=== PATIENT | male | born 1950 | race Caucasian/White ===

== ENCOUNTER 2017-03-16 11:12 | Outpatient (CLI) | payer MEDICARE, BC ==
[~2017-03-16] VITALS: Ht 170.2 cm; Wt 79.4 kg
[~2017-03-16 11:12] MED LIST: DULO1CAP3 PO; FISH100049 PO; MELO15TA4 PO; NAPR500T81 PO; OMEGA PO; OMEP20TA7 PO; OMEP40CA2 PO; TOPI50TA9 PO; TOPIRAMATE PO; TRAM37.53 PO; TRAM50TA2 PO; ULTRTA PO; VIT D 2000 PO; VITA10002 PO; VITA1CAP25 PO
[2017-03-16] MEDS ORDERED: VITA-182 PO (11:38)
[2017-03-16] MEDS ORDERED: NS 1,000 ML IV ONE (11:45)
[2017-03-16] MEDS ORDERED: PROPOFOL 200 MG/20 ML VIAL As Ordered ONE ×2 (12:38→13:02)
[2017-03-16] MEDS ORDERED: LIDOCAINE 2% INJ 100 MG/5 ML SDV (FOR ANES.) As Ordered ONE (12:38)
--- NOTE | 2017-03-16 12:53 | ROOR ---
Patient Name: Jose Daniel Petty Procedure Date: 03/16/2017 12:34 PM Date of : 1950 Age: 66 Room: [facility] Gender: Male Note Status: Finalized Procedure: Upper Endoscopy + Biopsies Indications: Heartburn, Heme positive stool Providers: Noam Louise MD Referring MD: Mirlande Valverde NP Requesting Provider: Medicines: Monitored Anesthesia Care Complications: No immediate complications. Procedure: Pre-Anesthesia Assessment: - The heart rate, respiratory rate, oxygen saturations, blood pressure, adequacy of pulmonary ventilation, and response to care were monitored throughout the procedure. The Endoscope was introduced through the mouth, and advanced to the second part of duodenum. The upper GI endoscopy was accomplished without difficulty. The patient tolerated the procedure well. Findings: The Z-line was irregular and was found 35 cm from the incisors. Multiple biopsies were obtained with cold forceps for evaluation to rule out Bunch's Esophagus randomly at the gastroesophageal junction. A small hiatal hernia was present. No other significant abnormalities were identified in a careful examination of the stomach. The exam of the duodenum was otherwise normal. Impression: - Z-line irregular, 35 cm from the incisors. - Small hiatal hernia. - Multiple biopsies were obtained at the gastroesophageal junction. - The examination was otherwise normal. Recommendation: - Patient has a contact number available for emergencies. The signs and symptoms of potential delayed complications were discussed with the patient. Return to normal activities tomorrow. Written discharge instructions were provided to the patient. - High fiber diet. - Discharge patient to home. - Follow an antireflux regimen. - Continue present medications. - Await pathology results. - Telephone GI clinic for pathology results in 1 week. - The findings and recommendations were discussed with the patient's family. Noam Louise MD Noam Louise MD 03/16/2017 12:53:01 PM This report has been signed electronically. Number of Addenda: 0 Note Initiated On: 03/16/2017 12:34 PM Estimated Blood Loss: Estimated blood loss: none.
--- NOTE | 2017-03-16 13:13 | ROOR ---
Patient Name: Jose Daniel Petty Procedure Date: 03/16/2017 12:35 PM Date of : 1950 Age: 66 Room: [facility] Gender: Male Note Status: Finalized Procedure: Total Colonoscopy to Cecum + Biopsy Polypectomy Indications: Last colonoscopy: 2010, Heme positive stool Providers: Noam Louise MD Referring MD: Mirlande Valverde NP Requesting Provider: Medicines: Monitored Anesthesia Care Complications: No immediate complications. Procedure: Pre-Anesthesia Assessment: - The heart rate, respiratory rate, oxygen saturations, blood pressure, adequacy of pulmonary ventilation, and response to care were monitored throughout the procedure. The Colonoscope was introduced through the anus and advanced to the cecum, identified by appendiceal orifice and ileocecal valve. The colonoscopy was performed without difficulty. The patient tolerated the procedure well. The quality of the bowel preparation was excellent. Findings: The perianal and digital rectal examinations were normal. Non-bleeding internal hemorrhoids were found during retroflexion. The hemorrhoids were small and Grade I (internal hemorrhoids that do not prolapse). Scattered small-mouthed diverticula were found in the recto-sigmoid colon, sigmoid colon and descending colon. A small polyp was found in the cecum. The polyp was sessile. The polyp was removed with a cold biopsy forceps. Resection and retrieval were complete. The exam was otherwise without abnormality on direct and retroflexion views. Impression: - Non-bleeding internal hemorrhoids. - Diverticulosis in the recto-sigmoid colon, in the sigmoid colon and in the descending colon. - One small polyp in the cecum, removed with a cold biopsy forceps. Resected and retrieved. - The examination was otherwise normal on direct and retroflexion views. - The exam was otherwise normal to the cecum. Recommendation: - Patient has a contact number available for emergencies. The signs and symptoms of potential delayed complications were discussed with the patient. Return to normal activities tomorrow. Written discharge instructions were provided to the patient. - High fiber diet. - Discharge patient to home. - Continue present medications. - Await pathology results. - Telephone GI clinic for pathology results in 1 week. - Repeat colonoscopy in 10 years for surveillance based on pathology results. - Return to referring physician. - The findings and recommendations were discussed with the patient's family. Noam Louise MD Noam Louise MD 03/16/2017 1:12:52 PM This report has been signed electronically. Number of Addenda: 0 Note Initiated On: 03/16/2017 12:35 PM Estimated Blood Loss: Estimated blood loss: none.
[2017-03-16 13:58] VITALS: BP 108/70
== END 2017-03-16 14:03 | disposition home or self-care (01) ==
LOC: M OPP 11:12
PROVIDERS: ATTEND Internal Medicine Gastroenterology
DX: K64.0 First degree hemorrhoids (principal); K57.30 Diverticulosis of large intestine without perforation or abscess without bleeding; D12.0 Benign neoplasm of cecum; R12 Heartburn; K22.8 Other specified diseases of esophagus; K44.9 Diaphragmatic hernia without obstruction or gangrene; K20.9 Esophagitis, unspecified; M19.90 Unspecified osteoarthritis, unspecified site; F41.9 Anxiety disorder, unspecified; F33.9 Major depressive disorder, recurrent, unspecified; G25.81 Restless legs syndrome; G62.9 Polyneuropathy, unspecified; R56.9 Unspecified convulsions; K21.9 Gastro-esophageal reflux disease without esophagitis; F17.210 Nicotine dependence, cigarettes, uncomplicated; Z79.899 Other long term (current) drug therapy

== ENCOUNTER → 2018-02-23 | Outpatient (CLI) | payer MEDICARE, BC ==
[~2018-02-23] MED LIST changes: -DULO1CAP3 PO; -FISH100049 PO; +LIDOCAINE 1% MDV 20ML VIAL As Ordered; -MELO15TA4 PO; -NAPR500T81 PO; -OMEGA PO; -OMEP20TA7 PO; -OMEP40CA2 PO; -TOPI50TA9 PO; -TOPIRAMATE PO; -TRAM37.53 PO; -TRAM50TA2 PO; -ULTRTA PO; -VIT D 2000 PO; -VITA10002 PO; -VITA1CAP25 PO
== END ==
LOC: M RADPRO 07:53
DX: D36.0 Benign neoplasm of lymph nodes (principal); F17.210 Nicotine dependence, cigarettes, uncomplicated; M12.9 Arthropathy, unspecified; Z79.891 Long term (current) use of opiate analgesic; Z79.899 Other long term (current) drug therapy
CPT/HCPCS: 38505

== ENCOUNTER → 2018-03-20 | Outpatient (CLI) | payer MEDICARE, BC | LOC: M RADPRO 09:51 | DX: R59.0 Localized enlarged lymph nodes (principal); E78.00 Pure hypercholesterolemia, unspecified; K21.9 Gastro-esophageal reflux disease without esophagitis; M54.9 Dorsalgia, unspecified; M17.0 Bilateral primary osteoarthritis of knee; F17.210 Nicotine dependence, cigarettes, uncomplicated; D51.9 Vitamin B12 deficiency anemia, unspecified; Z79.891 Long term (current) use of opiate analgesic; Z79.899 Other long term (current) drug therapy | CPT/HCPCS: 38505 ==

== ENCOUNTER → 2021-02-24 | Outpatient (REF) | payer MEDICARE, BC ==
[~2021-02-24] MED LIST changes: +CYAN100049 PO; +DULO1CAP6 PO; +FISH100049 PO; -LIDOCAINE 1% MDV 20ML VIAL As Ordered; +MELO15TA28 PO; +NAPR500T81 PO; +OMEGA PO; +OMEP20TA7 PO; +OMEP40CA4 PO; +TOPI50TA9 PO; +TOPIRAMATE PO; +TRAM37.53 PO; +TRAM50TA2 PO; +ULTRTA PO; +VIT D 2000 PO; +VITA-182 PO; +VITA1CAP25 PO
== END ==
LOC: M LAB REF 16:49
PROVIDERS: ATTEND Nurse Practitioner Adult Health
DX: R03.0 Elevated blood-pressure reading, without diagnosis of hypertension (principal)

== ENCOUNTER → 2022-11-22 | Outpatient (CLI) | payer MEDICARE, BC ==
[~2022-11-22] MED LIST changes: +ISOVUE-370 76% 100ML VIAL As Ordered ONE; +TOPI-254 PO; -TOPI50TA9 PO
== END ==
LOC: M RAD 13:39
PROVIDERS: ATTEND Nurse Practitioner Adult Health
DX: R91.8 Other nonspecific abnormal finding of lung field (principal)
CPT/HCPCS: 71260; Q9967

== ENCOUNTER → 2024-01-23 | Outpatient (CLI) | payer MEDICARE, BC ==
[~2024-01-23] MED LIST changes: -ISOVUE-370 76% 100ML VIAL As Ordered ONE; +TOPI-21 PO; -TOPI-254 PO; +TRAM-443 PO; -TRAM37.53 PO
== END ==
LOC: M RAD 08:53
PROVIDERS: ATTEND Nurse Practitioner Family
DX: Z12.2 Encounter for screening for malignant neoplasm of respiratory organs (principal); F17.210 Nicotine dependence, cigarettes, uncomplicated

== ENCOUNTER → 2025-01-23 | Outpatient (CLI) | payer MEDICARE, BC ==
[~2025-01-23] MED LIST changes: -TRAM-443 PO; +TRAM1TAB42 PO
== END ==
LOC: M RAD 08:37
PROVIDERS: ATTEND Nurse Practitioner Family
DX: Z12.2 Encounter for screening for malignant neoplasm of respiratory organs (principal); F17.210 Nicotine dependence, cigarettes, uncomplicated; I70.0 Atherosclerosis of aorta; I25.10 Atherosclerotic heart disease of native coronary artery without angina pectoris; J98.11 Atelectasis; R91.1 Solitary pulmonary nodule